=== PATIENT | male | born 1960 | race Two or more races ===

== ENCOUNTER 2019-11-07 09:35 | Outpatient (CLI) | payer OTHER | END 2019-11-07 09:40 | disposition home or self-care (01) | LOC: LAB 09:35 | DX: M54.32 Sciatica, left side (principal); M25.50 Pain in unspecified joint; Z13.1 Encounter for screening for diabetes mellitus; Z12.5 Encounter for screening for malignant neoplasm of prostate; Z11.3 Encounter for screening for infections with a predominantly sexual mode of transmission; Z11.4 Encounter for screening for human immunodeficiency virus [HIV] ==

== ENCOUNTER → 2020-10-27 | Emergency (ER) | payer OTHER | END | disposition left against medical advice (07) | LOC: ER 17:08 | DX: Z53.20 Procedure and treatment not carried out because of patient's decision for unspecified reasons (principal) ==